=== PATIENT | female | born 1975 ===

== ENCOUNTER 2020-10-05 10:41 | Observation (INO) ==
[2020-10-05] MEDS ORDERED: Naloxone 0.4 mg VIAL 0.4 mg/ml 1 ml VIAL IV PUSH PRN (11:00)
[2020-10-05] MEDS ORDERED: HYDROmorphone PCA 20 MG/20 ML PCA.SYRING PCA SCH (11:00)
[2020-10-05 11:23] LABS: ABS Monocytes 0.4 10^3/ul (0-0.8); ABS Neutrophils 3.5 10^3/ul (1.5-7.7); Eosinophil % 0.4 %; Hematocrit 38 % (35-47); Hemoglobin 12.6 g/dL (12.0-16.0); Lymphocyte % 34.1 %; Mean Corpuscular HGB Conc 33 g/dL (31-36); Mean Corpuscular Hemoglobin 26 pg (27-31); Mean Corpuscular Volume 80 fL (80-97); Mean Platelet Volume 8.4 fL (7.4-10.4); Nucleated Red Blood Cells % 0.1; Platelet Count 274 10^3/uL (150-450); Red Blood Count 4.75 10^6 /uL (3.70-4.87); Red Cell Distribution Width 16 % (10-15)
[2020-10-05] MEDS ORDERED: Ondansetron 4 mg VIAL 2 MG/ML 2 ml VIAL ONE (11:25)
[2020-10-05] MEDS ORDERED: oxyCODONE SR 10 mg TAB ONE (11:25)
[2020-10-05 11:31] LABS: Activated Partial Thrombo Time 24.6 seconds (26.0-38.0); INR 0.99 (0.82-1.09)
[2020-10-05 11:47] LABS: HCG Pregnancy < 0.60 mIU/mL
[2020-10-05 11:48] LABS: Anion Gap 7 mmol/L (2-11); BUN/Creatinine Ratio 17.3 (8-20); Blood Urea Nitrogen 13 mg/dL (6-24); CO2 Carbon Dioxide 24 mmol/L (22-32); Chloride 106 mmol/L (101-111); EGFR African American 101.1 (>60); EGFR Non-African American 83.6 (>60); Glucose 86 mg/dL (70-100); Potassium 3.9 mmol/L (3.5-5.0); Sodium 137 mmol/L (135-145)
[2020-10-05] MEDS ORDERED: Lidocaine 1% VIAL 10 MG/ML VIAL ONE (11:59)
[2020-10-05] MEDS ORDERED: Heparin 2 UNITS/ML 1000 mls 2,000 ML IV ONE (11:59)
[2020-10-05] MEDS ORDERED: Iohexol 350 (CONTRAST) 200 ML MDV IV ONE (11:59)
[2020-10-05] MEDS ORDERED: Clindamycin 900 MG/50 **NS BAG 900 MG/50 ML BAG IVPB ONE (12:00)
[2020-10-05] MEDS ORDERED: Midazolam 5 mg/5 ml VIAL 1 mg/ml 5 ml VIAL (5 mg) ONE (12:17)
[2020-10-05] MEDS ORDERED: fentaNYL 250 mcg/5 ml 50 MCG/ML 5 ml VIAL (250 MCG) ONE (12:17)
[2020-10-05] MEDS ORDERED: nitroGLYCERIN DRIP 25,000 MCG/250 ML BTL ONE (12:20)
[2020-10-05] MEDS ORDERED: HYDROmorphone 0.5 MG/0.5 ML SYRINGE IV SLOW PU PRN (18:04)
[2020-10-05] MEDS ORDERED: NS 0.45% IV SCH (19:00)
[2020-10-05] MEDS ORDERED: NS 0.9% 1000 ml BAG 1,000 ML IV SCH (19:06)
[2020-10-05] MEDS: Ondansetron 4 mg VIAL 2 MG/ML 2 ml VIAL IV SCH (19:21)
[2020-10-06] MEDS: Ondansetron 4 mg VIAL 2 MG/ML 2 ml VIAL IV SCH ×2 (00:43→06:27)
[2020-10-06] MEDS ORDERED: HYDROcodone/ACETAMIN 5/325 mg TAB PO PRN (08:39)
[2020-10-06] MEDS ORDERED: Fluticasone NASAL SPRAY 50MCG 16 gm SPRAY BTL BOTH NARES SCH (09:00)
[2020-10-06] MEDS ORDERED: [UNRECOGNIZED DRUG - OTHER] PO SCH (09:00)
[2020-10-06] MEDS ORDERED: CMC:Ketorolac 10 mg TAB (NF) PO SCH (09:00)
[2020-10-06 11:03] VITALS: BP 121/62
== END 2020-10-06 11:50 | disposition home or self-care (01) ==
LOC: SSU 10:41 → CHICATH 10:41
PROVIDERS: ADMIT Radiology Diagnostic Radiology; ATTEND Internal Medicine